=== PATIENT | male | born 1970 | race Two or more races ===

== ENCOUNTER 2024-12-14 02:32 | Emergency (ER) | payer OTHER, SELFPAY ==
--- NOTE | ~2024-12-14 | CT_ITS ---
CLINICAL HISTORY: LUQ pain, post endoscopy CT abdomen and pelvis with contrast Comparison: None provided Findings: No consolidation or effusion. Atherosclerotic disease of the coronary arteries noted. Heterogeneous, lobular liver without definite discrete mass. Gallstones present. The spleen is enlarged. No adrenal mass. No significant peripancreatic stranding. 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 No obstructive uropathy. No bowel obstruction or free air. No pneumatosis. Scattered gas throughout nondistended small and large bowel. Small fat containing inguinal hernias bilaterally. No acute osseous finding. Mild scattered atherosclerotic disease. Impression: Cholelithiasis without evidence of cholecystitis. No definite acute process. Unfused crossed ectopia of the kidneys. Findings suggestive of cirrhosis in the sequelae of portal venous hypertension with splenomegaly. This document has been electronically signed by: Con Goss MD on 12/14/2024 06:17:22
[2024-12-14 02:43] VITALS: BP 129/65; PULSE 84; RESP 16; TEMP 36.9; O2SAT 98
[2024-12-14 03:01] VITALS: BP 120/71; PULSE 86; O2SAT 96; BMI 36.1
--- NOTE | 2024-12-14 03:22 | ED_ITS ---
HPI - Abdominal Pain General Chief Complaint: Abdominal Pain Stated Complaint: Lft Hip Pain / RT lower ABD Pain Time Seen by Provider: 12/14/24 03:22 History of Present Illness ED Provider: Judah Delgadillo MD HPI narrative: 54-year-old male with left flank and abdominal pain. Patient himself is very poor historian I was able to review records from [facility] including recent gastroenterology clinic notes from mid November I was not able to see a colonoscopy or endoscopy report that he says was done yesterday. His documented medical history is alcohol use disorder, cirrhosis, depression, H pylori, hemorrhoids, hepatic steatosis obesity tobacco use disorder. Tells me he has had left upper quadrant pain just today. No vomiting he is attributing it to being on his feet all day at a festival here in [place]. No dysuria hematuria fever Related Data Allergies Allergy/AdvReac Type Severity Reaction Status Date / Time No Known Allergies Allergy Verified 12/14/24 03:03 [facility] Social History Social History Smoked in Last 30 Days: No Use of substances other than those prescribed or required for medical reasons: No Advance Directives: No Advance Directives Information Provided: Yes Do you have a plan to hurt others: No Plan Physical Exam ED Exam Exam: EXAM: Gen: Alert, awake, well appearing, well hydrated. Head: Atraumatic Eyes: Anicteric, Normal conjunctiva. ENT: Moist mucosa, no pallor. ? Neck: Supple. Skin: ?No observable rash or bruising on exposed or examined skin Respiratory: Breathing comfortably, No distress.Clear to auscultation bilaterally, symmetric chest expansion, No wheeze, rales, ronchi. Cardiovascular: Regular rate and rhythm. No murmurs or rub. Well perfused periphery, warm extremities. No edema. ? Abdominal: No focal tenderness. Soft, no objective distension. No palpable masses or obvious organomegaly. ?No guarding, no rebound tenderness or other peritoneal findings. : No flank tenderness. Neuro: Alert. Gross movement of all extremities intact. ? Psych: Calm. Cooperative. MSK: No grossly visible deformity. Vital signs: See flowsheet Vital Signs: Vital Signs - 24 hr 12/14/24 02:43 Temperature 98.4 F Pulse Rate 84 Respiratory Rate 16 Blood Pressure 129/65 Pulse Oximetry 98 Oxygen Delivery Method Room Air BMI result Body Mass Index 36.1 Medical Decision Making Medical Decision Making MDM Narrative: Medical Decision Makin-year-old male with chronic liver disease/cirrhosis with endoscopy? December 13. Patient is poor historian the nurses and EMS reported that the patient was ?trying to get a ride back to [place] ?by ambulance but they took him here. It is unclear whether his symptoms are acute or there is secondary gain. You does not appear to be exhibiting significant tenderness but reports subjective left upper quadrant flank pain. Denies kidney stone history. later at about 06:40 CT resulted with no acute pathology no complication of endoscopy we will discharge home patient is to follow up with his [facility] providers Preliminary Favored Differential Diagnosis: constipation, complication of endoscopy, splenic injury, ascites, gastritis, PUD, deconditioning among additional considered etiologies Testing Interpreted Independently: Not Applicable Radiology or Lab testing Results Reviewed: reviewed lab work, no actionable findings. Reviewed CT report Consults: Not Applicable Independent Historians/External Chart Reviews: I extensively personally reviewed available [facility] records but was unable to see a endoscopy report from December 11 despite multiple nursing notes there was no specific diagnosis provided postprocedurally. Social Determinants of Health Impacting MDM/Planning: Not Applicable Lab Data 12/14/24 04:34 12/14/24 04:34 Labs: Lab Results 12/14/24 Range/Units 04:34 WBC 8.2 (4.8-10.8) X10*3/uL RBC 3.43 L (4.60-5.80) X10*6/uL Hgb 11.1 L (14.0-18.0) g/dl Hct 32.0 L (42.0-52.0) % MCV 93.3 (80.0-98.0) fL MCH 32.4 (27.0-33.0) pg MCHC 34.7 (31.0-36.0) g/dl RDW 17.1 H (11.0-16.0) % Plt Count 63 L (160-400) X10*3/uL MPV Not Reportable Immature Gran % (Auto) 0.4 (0.0-0.4) % Neut % (Auto) 78.8 H (45-73) % Lymph % (Auto) 9.5 L (20-40) % [place] % (Auto) 10.5 (2-11) % Eos % (Auto) 0.6 (0-4) % Baso % (Auto) 0.2 (0-2) % Lymph # (Auto) 0.8 L (1.2-4.9) X10*3/uL [place] # (Auto) 0.9 (0.1-1.2) X10*3/uL Eos # (Auto) 0.1 (0.0-0.4) X10*3/uL Baso # (Auto) 0.0 (0.0-0.2) X10*3/uL Abs Immat Gran (auto) 0.03 (0.00-0.03) X10*3/uL Absolute Neuts (auto) 6.4 (2.0-8.3) x10*3/uL Absolute Nucleated RBC 0.000 (0.0-0.012) X10*3/uL Nucleated RBC % (auto) 0.0 (0.0-0.2) /100WBC Smear Tech's Comments VERIFIED PT 22.7 H (10.9-12.4) SEC INR 2.0 H (0.9-1.1) APTT 35.0 H (26.7-34.1) SEC Sodium 138 (135-145) mmol/L Potassium 5.1 (3.3-5.1) mmol/L Chloride 103 (96-108) mmol/L Carbon Dioxide 26 (22-29) mmol/L Anion Gap 14 (12-20) BUN 13 (9-16) mg/dL Creatinine 0.80 (0.5-1.4) mg/dL Estim Creat Clear Calc 94.9 Estimated GFR > 60 Random Glucose 87 (60-115) mg/dL Calcium 8.0 L (8.4-10.2) mg/dL Total Bilirubin 4.4 H (0.0-1.0) mg/dL AST 71 H (5-37) U/L ALT 15 (0-40) U/L Alkaline Phosphatase 148 H (39-117) U/L Total Protein 7.1 (6.5-8.0) g/dL Albumin 2.5 L (3.5-5.0) g/dL Medications Administered Discontinued Medications Generic Name Dose Route Start Last Admin Trade Name Freq PRN Reason Stop Dose Admin Iohexol 85 ml 12/14/24 05:31 12/14/24 05:32 Iohexol 350 Mg/Ml 100 Ml Infus..Btl IV 12/14/24 05:32 85 ml ONCE ONE Administration Discharge Plan Discharge Clinical Impression: Abdominal pain Patient Disposition: Home, Self-Care Instructions: Abdominal Pain (ED) Additional Instructions: _ DISCHARGE DIAGNOSES: Abdominal pain left side unclear cause HISTORY OF PRESENTATION: ?Abdominal pain after endoscopy EMERGENCY DEPARTMENT COURSE,TESTS, TREATMENTS: While in the ED today you had lab work and a CT which did not show clear cause of your left-sided abdominal pain DISCHARGE MEDICATIONS: ?[We have made no changes to your regular medication regimen] FOLLOW-UP: ?Call your primary or general physician soon as possible to discuss your symptoms, your ED visit and to discuss follow up plans Call your [facility] doctors to discuss your pain particularly the 1 who performed the endoscopy procedure INSTRUCTIONS ?& RETURN PRECAUTIONS: If any symptoms change first call your primary physician, if it is after-hours your primary doctors office should have a provider media relations coordinator you can speak with. If the symptoms are severe or very concerning to you then call 911 or return to the ED. Judah Delgadillo MD Emergency Physician [facility] Interventions: ED Discharge Assessment Last Done: 12/14/24 06:47 Discharge Date/Time: 12/14/24 06:48 Print Language: Marshallese
[2024-12-14 04:41] LABS: Hematocrit 32.0 % (42.0-52.0); Hemoglobin 11.1 g/dl (14.0-18.0); Imm Gran Abs Auto 0.03 X10*3/uL (0.00-0.03); Imm Gran Pct Auto 0.4 % (0.0-0.4); Lymphocytes Absolute Auto 0.8 X10*3/uL (1.2-4.9); Mean Corpuscular HGB Conc 34.7 g/dl (31.0-36.0); Mean Corpuscular Hemoglobin 32.4 pg (27.0-33.0); Mean Corpuscular Volume 93.3 fL (80.0-98.0); NRBC Abs Auto 0.000 X10*3/uL (0.0-0.012); NRBC Pct Auto 0.0 /100WBC (0.0-0.2); Platelet Count 63 X10*3/uL (160-400); Red Blood Count 3.43 X10*6/uL (4.60-5.80); White Blood Count 8.2 X10*3/uL (4.8-10.8)
[2024-12-14 04:42] LABS: MANUAL DIFF FLAG SCAN
[2024-12-14 04:46] LABS: INTERNATIONAL NORM RATIO 2.0 (0.9-1.1); Prothrombin Time 22.7 SEC (10.9-12.4)
[2024-12-14 04:49] LABS: Partial Thromboplastin Time 35.0 SEC (26.7-34.1)
[2024-12-14 04:55] LABS: Alanine Aminotransferase 15 U/L (0-40); Albumin Level 2.5 g/dL (3.5-5.0); Alkaline Phosphatase 148 U/L (39-117); Anion Gap 14 (12-20); Aspartate Amino Transferase 71 U/L (5-37); Blood Urea Nitrogen 13 mg/dL (9-16); Calcium 8.0 mg/dL (8.4-10.2); Carbon Dioxide 26 mmol/L (22-29); Chloride 103 mmol/L (96-108); Creatinine Clr Calc Pharmacy 94.9; Estimated Glomerular Filt Rate > 60; Potassium 5.1 mmol/L (3.3-5.1); Sodium 138 mmol/L (135-145); Total Protein 7.1 g/dL (6.5-8.0)
[2024-12-14] MEDS: iohexoL 350 MG/ML 100 ML INFUS..BTL 85 ML IV (05:32)
[2024-12-14 06:15] VITALS: BP 111/68; PULSE 84; RESP 16; TEMP 36.7; O2SAT 98
[2024-12-14 06:47] VITALS: BP 111/68; PULSE 84; RESP 16; TEMP 36.7; O2SAT 98
== END 2024-12-14 06:48 | disposition home or self-care (01) ==
PROVIDERS: Emergency Provider Emergency Medicine
DX: R10.12 Left upper quadrant pain (principal); K74.60 Unspecified cirrhosis of liver; K76.0 Fatty (change of) liver, not elsewhere classified; F17.210 Nicotine dependence, cigarettes, uncomplicated
CPT/HCPCS: 36415; 74177; 80053; 85025; 85610; 85730; 96360; 99284; Q9967

== ENCOUNTER → 2024-12-14 04:06 | Outpatient (BNV) | payer OTHER, SELFPAY | PROVIDERS: Emergency Provider Emergency Medicine; Visit Provider Radiology Vascular & Interventional Radiology | DX: K80.20 Calculus of gallbladder without cholecystitis without obstruction (principal) | CPT/HCPCS: 74177 ==